=== PATIENT | male | born 1960 | race Two or more races ===

== ENCOUNTER 2016-05-12 10:27 | Day surgery (SDC) | payer BC ==
[2016-05-09 15:09] VITALS: BMI 27.2
[~2016-05-12 10:27] MED LIST: LACTATED RINGERS 1,000 ML IV SCH
[2016-05-12 10:59] VITALS: RESP 16; TEMP 97.5
[2016-05-12] MEDS ORDERED: LIDOCAINE 1% 20 ML VIAL (10MG/ML) FOR IV START INTRADERMA ONE (10:59)
[2016-05-12] MEDS ORDERED: PROPOFOL 10 MG/ML 20 ML VIAL IV ONE (11:16)
--- NOTE | 2016-05-12 11:38 | P.PCN ---
Date of Procedure: 05/12/16 Procedure(s) Performed: BRIEF HISTORY: Patient is a 55-year-old pleasant white male, scheduled for an elective colonoscopy as a part of screening for colorectal neoplasia. PROCEDURE PERFORMED: Colonoscopy and snare polypectomy. PREOPERATIVE DIAGNOSIS: Screening for for colon cancer. IV sedation per Anesthesia. PROCEDURE: After informed consent was obtained, the patient, was brought into the endoscopy unit. IV conscious sedation was administered by Anesthesia under continuous monitoring. Initially the Olympus CF-160 flexible video colonoscope was then inserted in the rectum, gradually advanced into the cecum without any difficulty. Careful examination was performed as the scope was gradually being withdrawn. Ileocecal valve and the appendiceal orifice were visualized and appeared normal. Prep was excellent. In the base of the cecum there was a 3-4 cm broad-based polyp that was removed by piecemeal snare polypectomy and complete polypectomy accomplished. Rest of the mucosa of the cecum, ascending colon, transverse colon, descending colon, sigmoid colon, and rectum appeared normal. In the proximal rectum there were 2 polyps measuring 5 mm and 1.5 cm in size which were removed by snare polypectomy Retroflexion was performed in the rectum and no lesions were seen. The patient tolerated the procedure well. IMPRESSION: 3-4 cm broad-based cecal polyp status post piecemeal snare polypectomy and complete polypectomy accomplished 5 mm and 1.5 cm proximal rectal polyps status post polypectomy . RECOMMENDATIONS: Findings of this examination were discussed with the patient as well as his family. He was advised to follow with the biopsy results. If the biopsy shows a tubular adenoma he can have a repeat colonoscopy in 3-6 months to ensure complete polypectomy and complete removal of the cecal polyp. She was advised to follow up in office in a week from now to discuss the biopsy results
[2016-05-12 11:58] VITALS: BP 123/76; PULSE 62
== END 2016-05-12 12:48 | disposition home or self-care (01) ==
LOC: ORWHC2ENDO 10:27
PROVIDERS: ATTEND Internal Medicine Gastroenterology
DX: Z12.11 Encounter for screening for malignant neoplasm of colon (principal); D12.0 Benign neoplasm of cecum; K62.1 Rectal polyp; Z79.82 Long term (current) use of aspirin
CPT/HCPCS: 45385; 88305; J2704

== ENCOUNTER 2016-11-03 11:59 | Day surgery (SDC) | payer BC ==
[2016-11-03 12:11] VITALS: RESP 18; TEMP 98.1
[2016-11-03] MEDS ORDERED: LIDOCAINE 1% 20 ML VIAL (10MG/ML) FOR IV START INTRADERMA ONE (12:17)
[2016-11-03] MEDS ORDERED: PROPOFOL 10 MG/ML 20 ML VIAL IV ONE (12:44)
--- NOTE | 2016-11-03 13:08 | P.PCN ---
Date of Procedure: 11/03/16 Preoperative Diagnosis: Postoperative Diagnosis: Procedure(s) Performed: BRIEF HISTORY: Patient is a 56-year-old pleasant male, scheduled for an elective colonoscopy as a part of surveillance of colon polyps. He had a screening colonoscopy in April 2016 and was noted to have a 3-4 cm broad-based cecal polyp that was removed by piecemeal snare polypectomy and biopsy showed tubular villous adenoma. He scheduled for repeat surveillance colonoscopy to ensure complete polypectomy. PROCEDURE PERFORMED: Colonoscopy with snare polypectomy and argon plasma coagulation. PREOPERATIVE DIAGNOSIS: Follow-up large cecal polyp noted on colonoscopy in April 2016. IV sedation per Anesthesia. PROCEDURE: After informed consent was obtained, the patient, was brought into the endoscopy unit. IV sedation was administered by Anesthesia under continuous monitoring. Digital rectal examination was normal. Initially the Olympus CF- 160 flexible video colonoscope was then inserted in the rectum, gradually advanced into the cecum without any difficulty. Careful examination was performed as the scope was gradually being withdrawn. Ileocecal valve and the appendiceal orifice were visualized and appeared normal. Prep was excellent. In the base of the cecum there was a 2 cm residual polyp identified which was removed by snare polypectomy and part of the polyp which was close to the appendiceal orifice was coagulated using argon plasma with good hemostasis. The hepatic flexure there was a 5 mm polyp that was removed by snare polypectomy. The rest of the Mucosa of the cecum, ascending colon, transverse colon, descending colon, sigmoid colon, and rectum appeared normal. Retroflexion was performed in the rectum and no lesions were seen. The patient tolerated the procedure well. IMPRESSION: 2 cm residual polyp in the base of the cecum involving the appendiceal orifice, status post snare polypectomy and argon plasma coagulation with complete polypectomy. 5 mm hepatic flexure polyp serous was snare polypectomy. RECOMMENDATIONS: Findings of this examination were discussed with the patient as well as his family. He was advised to follow with the biopsy results. He will need to have a repeat colonoscopy in 6-12 months Implants: Indications for Procedure: Operative Findings: Description of Procedure:
[2016-11-03 13:45] VITALS: BP 139/78; PULSE 57
== END 2016-11-03 13:55 | disposition home or self-care (01) ==
LOC: ORWHC2ENDO 11:59
PROVIDERS: ATTEND Internal Medicine Gastroenterology
DX: Z12.11 Encounter for screening for malignant neoplasm of colon (principal); Z86.010 Personal history of colon polyps; Z79.1 Long term (current) use of non-steroidal anti-inflammatories (NSAID); F17.200 Nicotine dependence, unspecified, uncomplicated
CPT/HCPCS: 45385; 45388; J2704

== ENCOUNTER → 2018-12-03 | Outpatient (CLI) | payer BC ==
--- NOTE | 2018-12-04 07:18 | US ---
EXAMINATION TYPE: US carotid duplex BILAT DATE OF EXAM: 12/03/2018 COMPARISON: NONE CLINICAL HISTORY: E78.2 Mixed Hyperlipidemia, Z87.891 personal hx of. smoker, h/o [place] 1 year ago, poss ible bruit heard in office EXAM MEASUREMENTS: RIGHT: Peak Systolic Velocity (PSV) cm/sec ----- Right CCA: 60.7 ----- Right ICA: 82.3 ----- Right ECA: 103.6 ICA/CCA ratio: 1.4 RIGHT: End Diastole cm/sec ----- Right CCA: 20.9 ----- Right ICA: 36.1 ----- Right ECA: 22.3 LEFT: Peak Systolic Velocity (PSV) cm/sec ----- Left CCA: 65.0 ----- Left ICA: 81.4 ----- Left ECA: 82.3 ICA/CCA ratio: 1.3 LEFT: End Diastole cm/sec ----- Left CCA: 27.3 ----- Left ICA: 39.5 ----- Left ECA: 17.7 VERTEBRALS (direction of flow): Right Vertebral: Antegrade Left Vertebral: Antegrade Rhythm: Normal Heterogeneous plaque with no significant stenosis seen. IMPRESSION: Mild degree of grayscale atheromatous plaquing with no sonographically evident hemodynam ically significant stenosis within either visualized carotid arterial system. Criteria for Assigning % of Stenosis / Diameter reduction (Estimation based on the indirect measurements of the internal carotid artery velocities (ICA PSV). 1. Normal (no stenosis)=ICA PSV < 125 cm/s: ratio < 2.0: ICA EDV<40 cm/s. 2. Less than 50% stenosis=ICA PSV < 125 cm/s: ratio < 2.0: ICA EDV<40 cm/s. 3. 50 to 69% stenosis=ICA PSV of 125 to 230 cm/s: ration 2.0 ? 4.0: ICA EDV 40-100 cm/s. 4. Greater than 70% stenosis to near occlusion= ICA PSV > 230 cm/s: ratio > 4.0: ICA EDV > 100 cm/s. 5. Near occlusion= ICA PSV velocities may be low or undetectable: variable ratio and ICA EDV. 6. Total occlusion=unable to detect flow.
--- NOTE | 2018-12-04 10:29 | CTL ---
EXAMINATION TYPE: CT Low Dose Lung DATE OF EXAM ORDERED: 12/03/2018 HISTORY: Personal history of tobacco use, asbestos exposure. Lung cancer screening CT DLP: 88.[address] CTDI: 2.2 mGy Automated exposure control for dose reduction was used. SCREENING VISIT: 1 COMPARISON: None TECHNIQUE: Low dose computed tomography scan was performed through the chest at 1 mm thick sections a nd reconstructed images in the coronal plane at [address] DIAGNOSTIC QUALITY: Satisfactory FINDINGS: LUNG NODULES: None. LUNGS: COPD: Severity: Moderate Fibrosis: Severity: Mild Lymph nodes: Nonenlarged Other findings: RIGHT PLEURAL SPACE: Effusion: None Calcification: None Thickening: None Pneumothorax: None LEFT PLEURAL SPACE: Effusion: None Calcification: None Thickening: None Pneumothorax: None HEART: Heart Size: Small Coronary calcification: Moderate Pericardial effusion: None OTHER FINDINGS: Upper abdomen: Unremarkable Bony thorax: Within normal limits Supraclavicular region: Somewhat obscured by artifact Other: IMPRESSION: Negative FOLLOW UP CT CHEST RECOMMENDATION: [address] LUNG RAD: 1
== END | disposition home or self-care (01) ==
LOC: RADCTMAIN 16:54
PROVIDERS: ATTEND Family Medicine
DX: Z12.2 Encounter for screening for malignant neoplasm of respiratory organs (principal); I65.23 Occlusion and stenosis of bilateral carotid arteries; I25.10 Atherosclerotic heart disease of native coronary artery without angina pectoris; E78.2 Mixed hyperlipidemia; F17.210 Nicotine dependence, cigarettes, uncomplicated
CPT/HCPCS: 93880; G0297

== ENCOUNTER → 2019-04-23 | Outpatient (CLI) | payer BC ==
--- NOTE | 2019-04-23 15:42 | XR ---
EXAMINATION TYPE: XR Hip Complete LT DATE OF EXAM: 04/23/2019 CLINICAL HISTORY: pain TECHNIQUE: AP and frogleg views of the left hip are obtained. COMPARISON: None. FINDINGS: There is no acute fracture/dislocation evident. The joint space appears within normal li mits. The overlying soft tissue appears unremarkable. IMPRESSION: 1. There is no acute fracture or dislocation.ICD 10 NO FRACTURE, INITIAL EVALUATION
== END | disposition home or self-care (01) ==
LOC: RADXRYALE 15:13
PROVIDERS: ATTEND Physician Assistant Medical
DX: M25.552 Pain in left hip (principal)
CPT/HCPCS: 73502

== ENCOUNTER → 2022-01-25 | Day surgery (SDC) | payer BC ==
[2022-01-18 12:10] VITALS: BMI 27.9
[~2022-01-25] MED LIST changes: +LIDOCAINE 1% (10MG/ML) FOR IV START INTRADERMA PRN; +PROPOFOL 10 MG/ML 20 ML VIAL IV ONE
[2022-01-25 08:28] VITALS: TEMP 97
--- NOTE | 2022-01-25 09:48 | P.PCN ---
Date of Procedure: 01/25/22 Procedure(s) Performed: BRIEF HISTORY: Patient is a 61-year-old pleasant white male scheduled for an elective colonoscopy as a part of evaluation of prior history of colon polyps. Last colonoscopy was 4 years ago. PROCEDURE PERFORMED: Colonoscopy snare polypectomy. PREOPERATIVE DIAGNOSIS: History Of colon polyps. IV sedation per Anesthesia. PROCEDURE: After informed consent was obtained, the patient, was brought into the endoscopy unit. IV sedation was administered by Anesthesia under continuous monitoring. Digital rectal examination was normal. Initially the Olympus CF-160 flexible video colonoscope was then inserted in the rectum, gradually advanced into the cecum without any difficulty. Careful examination was performed as the scope was gradually being withdrawn. Ileocecal valve and the appendiceal orifice were visualized and appeared normal. Prep was excellent. Mucosa of the cecum, and upon centimeter broad-based polypoid appendiceal orifice which was removed by snare polypectomy and complete polypectomy accomplished. Rest of the ascending colon, transverse colon, descending colon, sigmoid colon, and rectum appeared normal. Retroflexion was performed in the rectum and no lesions were seen. The patient tolerated the procedure well. IMPRESSION: 1 cm broad-based cecal polyp by the appendiceal orifice status post snare polypectomy and complete polypectomy accomplished Rest of the colon appeared normal RECOMMENDATIONS: Findings of this examination were discussed with the patient well as his family.. He was advised to follow with the biopsy results. If the biopsies adenoma he can have a repeat colonoscopy in 3 years
[2022-01-25 09:55] VITALS: RESP 18
[2022-01-25 10:13] VITALS: BP 139/87; PULSE 66
== END ==
LOC: ORWHC2ENDO 07:49
PROVIDERS: ATTEND Internal Medicine Gastroenterology
DX: Z12.11 Encounter for screening for malignant neoplasm of colon (principal); D12.0 Benign neoplasm of cecum; I25.10 Atherosclerotic heart disease of native coronary artery without angina pectoris; I10 Essential (primary) hypertension; E78.5 Hyperlipidemia, unspecified; F17.200 Nicotine dependence, unspecified, uncomplicated; F12.90 Cannabis use, unspecified, uncomplicated; Z86.010 Personal history of colon polyps; Z79.82 Long term (current) use of aspirin; Z79.899 Other long term (current) drug therapy
CPT/HCPCS: 88305; 45385; J2704